=== PATIENT | male | born 1960 | race Caucasian/White ===

== ENCOUNTER → 2024-12-10 07:39 | Outpatient (CLI) | payer SELFPAY ==
--- NOTE | 2024-12-10 07:51 | DI.RAD.S_ITS ---
PROCEDURE: XR HIP W PEL IF DONE RT 2V INDICATIONS: Pain in right hip TECHNIQUE: AP pelvis with lateral view(s) of the right hip(s). COMPARISON: None. FINDINGS: Bones: There are degenerative changes of the right hip. No acute fracture or dislocation. Mild degenerative changes of the sacroiliac joints. There are also degenerative changes of the left hip. Soft tissues: The visualized bowel gas pattern is normal. No suspicious soft tissue calcifications. Vasectomies clips are noted in the lower pelvis. IMPRESSION: Right hip without acute fracture or dislocation. Degenerative changes of the bilateral hips. If there are persistent symptoms or clinical suspicion for pathology, then repeat radiographs or advanced imaging (CT or MRI) may be considered for further evaluation. Dictated by: Shar Lagunas M.D. on 12/10/2024 at 15:12 Approved by: Shar Lagunas M.D. on 12/10/2024 at 15:19
== END ==
PROVIDERS: PCP Physician Assistant; Referring Provider Physician Assistant; Visit Provider Physician Assistant
DX: M25.551 Pain in right hip (principal)
CPT/HCPCS: 73502